=== PATIENT | male | born 1960 | race African-American/Black ===

== ENCOUNTER 2024-10-31 09:18 | Emergency (ER) | payer OTHER ==
[~2024-10-31] VITALS: Ht 175.3 cm; Wt 127.0 kg
[2024-10-31 09:23] VITALS: O2SAT 98
[2024-10-31 10:20] VITALS: BP 151/71; PULSE 78; RESP 16; TEMP 36.8; O2SAT 98
== END 2024-10-31 10:23 | disposition home or self-care (01) ==
LOC: ER 09:32
DX: L25.9 Unspecified contact dermatitis, unspecified cause (principal)
CPT/HCPCS: 99281; 99283